=== PATIENT | female | born 1955 | race Caucasian/White ===

== ENCOUNTER → 2018-06-20 | Outpatient (REF) ==
[~2018-06-20] MED LIST: ATENOLOL25 MG OR; BACTRIM DS1 TAB PO; BENADRYL 50MG C50 MG PO; FLORASTOR250 M1 PO; HYDROCHLOROT25 MG PO; LOSARTAN POT50 MG PO; MEDDOSEPAK PO; METRONIDAZOL500 MG PO; PEPCID20 MG PO
== END | disposition home or self-care (01) | DRG 812 ==
LOC: LAB 08:42
PROVIDERS: ATTEND Family Medicine
DX: D64.9 Anemia, unspecified (principal); R73.01 Impaired fasting glucose; I10 Essential (primary) hypertension; E03.9 Hypothyroidism, unspecified; E78.5 Hyperlipidemia, unspecified

== ENCOUNTER 2020-04-07 16:07 | Inpatient (IN) | payer BC ==
[~2020-04-07] VITALS: Ht 167.6 cm; Wt 120.8 kg
--- NOTE | 2020-04-07 16:17 | NUR ---
PT TO ROOM 16 APPEARS SOB. REFUSED WC X 2. SATS 92% RA.
--- NOTE | 2020-04-07 16:25 | NUR ---
PATIENT UP TO BR WITH ASSISTANCE
[2020-04-07 16:54] LABS: URINE BILIRUBIN - DIPSTICK NEGATIVE (NEGATIVE); URINE BLOOD DIPSTICK NEGATIVE (NEGATIVE); URINE COLOR YELLOW; URINE GLUCOSE - DIPSTICK NEGATIVE (NEGATIVE); URINE KETONE TRACE mg/dL (NEGATIVE); URINE LEUK ESTERASE NEGATIVE (NEGATIVE); URINE NITRITE - DIPSTICK NEGATIVE (Negative); URINE PH 5.5 (4.5-8.0); URINE PROTEIN - DIPSTICK 30 mg/dL (NEG-TRACE); URINE UROBILINOGEN - DIPSTICK 0.2 E.U./dL (0.2)
[2020-04-07 16:57] LABS: URINE SQUAMOUS EPITHELIAL CELL MODERATE EPI/hpf (0-FEW)
[2020-04-07 17:00] VITALS: BP 146/63
[2020-04-07 17:10] LABS: IMMATURE GRANULOCYTES 0.5 % (0.0-5.0); MEAN CORPUSCULAR HGB 28.7 pG CALC (26.0-32.0); MEAN CORPUSCULAR HGB CONC 32.1 g/dL CAL (32.0-36.0); NEUT# 5.61 thou/uL (2.00-7.15); RED BLOOD COUNT 3.97 mill/uL (4.20-5.60); RED CELL DISTRI WIDTH 14.1 % (11.5-15.5)
[2020-04-07 17:12] LABS: HEMATOCRIT 35.5 % (37.0-47.0); HEMOGLOBIN 11.4 g/dl (12.0-16.0); MEAN CELL VOLUME 89.4 fL CALC (80.0-100.0)
[2020-04-07 17:19] LABS: ALKALINE PHOSPHATASE 129 u/l (38-126); ANION GAP 14 (6-22 (CALC)); BUN 12 mg/dL (8-23); BUN/CREATININE RATIO 22 (12-20 (CALC)); CARBON DIOXIDE 23 mmol/l (22-30); CHLORIDE 106 mmol/l (95-108); CREATININE 0.5 mg/dL (0.5-1.0); GFR > 60 ML/MIN (>=60 (CALC)); GFR FOR AFR.AMER. > 60 ML/MIN (>=60 (CALC)); POTASSIUM 3.3 mmol/l (3.5-5.1); SGOT/AST 30 u/l (9-36); SODIUM 140 mmol/l (137-146)
[2020-04-07 17:22] LABS: ALBUMIN 4.1 g/dL (3.2-5.0); BILIRUBIN, TOTAL 0.6 mg/dL (0.0-1.4); TOTAL PROTEIN 7.8 g/dL (6.3-8.2)
[2020-04-07 17:29] LABS: ACT PARTIAL THROMBO TIME 26.6 SECONDS (20.0-32.5); PROTHROMBIN TIME 9.7 SECONDS (9.0-12.5)
[2020-04-07 18:00] VITALS: BP 188/87
--- NOTE | 2020-04-07 18:10 | NUR ---
COVID SWAB COLLECTED, ISOLATION PRECAUTIONS INITIATED.
[2020-04-07] MEDS ORDERED: METOPROL TAR25 MG PO (18:19)
--- NOTE | 2020-04-07 18:39 | NUR ---
PHONE CALL FROM RAMSES GOTTLIEB, NEW ORDERS RECEIVED.
[2020-04-07 18:41] LABS: C-REACTIVE PROTEIN 15.9 mg/dL (0-0.9)
--- NOTE | 2020-04-07 18:44 | NUR ---
MD AT BEDSIDE TO DISCUSS RESULTS AND POC.
[2020-04-07 19:00] VITALS: BP 170/79
--- NOTE | 2020-04-07 19:09 | NUR ---
BEDSIDE REPORT GIVEN TO FLORES LAINEZ.
--- NOTE | 2020-04-07 19:38 | NUR ---
PT'S RESPS EVEN, UNLABBORERD. PT PINK, WARM AND DRY. PT UPDATED ON PLAN OF CARE. PT IN NAD. PT AWARE THAT SHE IS ADMITTED AND BEDS ARE NOT AVAILABLE.
[2020-04-07 20:00] VITALS: BP 163/70
--- NOTE | 2020-04-07 21:58 | NUR ---
PT CURRENTLY SETTING UP HER FROM HOME CPAP. PT DENIES COMPLAINTS. PILLOW GIVEN
--- NOTE | 2020-04-07 22:40 | NUR ---
PT SETTLED INTO BED. PT WEARING HOME CPAP WITH NO DISTRESS NOTED
--- NOTE | 2020-04-08 00:29 | NUR ---
PT SLEEPING WITH CPAP IN PLACE. RESPS EVEN, UNALBBORED
--- NOTE | 2020-04-08 01:40 | NUR ---
PT PLACED ON HOSPITAL BED FOR COMFORT. PT DENIES COMPLAINTS. RESPS EVEN, UNALBBORED WITH HOME CPAP.
--- NOTE | 2020-04-08 02:17 | NUR ---
PT SLEEPING. RESPS EVEN, UNALBBORED.
--- NOTE | 2020-04-08 03:46 | NUR ---
PT SLEEPING. RESPS EVEN,UNLABBORED
--- NOTE | 2020-04-08 04:48 | NUR ---
PT SLEEPING. RESPS EVEN, UNLABBORED
--- NOTE | 2020-04-08 07:00 | NUR ---
REPORT RECEIVED FROM MIGEL TANNER.
--- NOTE | 2020-04-08 07:00 | NUR ---
RECEIVED REPORT FROM MIGEL TANNER.
--- NOTE | 2020-04-08 08:30 | NUR ---
PT PROVIDED MEAL TRAY. STABLE ON MONITOR. PERSONAL ITEMS AND CALL LIGHT WITHIN REACH.
--- NOTE | 2020-04-08 09:59 | NUR ---
TO RADIOLOGY IN STABLE CONDITION VIA WHEELCHAIR
--- NOTE | 2020-04-08 10:13 | NUR ---
PT RETURNED FROM RADIOLOGY VIA W/C IN STABLE CONDITION. REATTACHED TO MONITOR.
[2020-04-08 10:30] VITALS: BP 169/77
[2020-04-08 12:00] LABS: BASO% 0 % (0-3); EOS% 0 % (0-8); HEMATOCRIT 32.8 % (37.0-47.0); HEMOGLOBIN 10.7 g/dl (12.0-16.0); IMMATURE GRANULOCYTES 0.6 % (0.0-5.0); LYMPH% 12 % (15-41); MEAN CELL VOLUME 88.4 fL CALC (80.0-100.0); MEAN CORPUSCULAR HGB 28.8 pG CALC (26.0-32.0); MEAN CORPUSCULAR HGB CONC 32.6 g/dL CAL (32.0-36.0); MONO% 4 % (2-13); NEUT# 5.23 thou/uL (2.00-7.15); NEUT% 84 % (42-76); PLATELET COUNT 285 thou/uL (130-400); RED BLOOD COUNT 3.71 mill/uL (4.20-5.60)
--- NOTE | 2020-04-08 12:10 | NUR ---
LUNCH PROVIDED TO PT. MEDICATED AT THIS TIME FOR HEADACHE AND BP. WILL CONTINUE TO MONITOR.
[2020-04-08 12:14] LABS: ALBUMIN 3.8 g/dL (3.2-5.0); ALKALINE PHOSPHATASE 119 u/l (38-126); BILIRUBIN, TOTAL 0.4 mg/dL (0.0-1.4); BUN 13 mg/dL (8-23); BUN/CREATININE RATIO 24 (12-20 (CALC)); CHLORIDE 104 mmol/l (95-108); CREATININE 0.5 mg/dL (0.5-1.0); GFR > 60 ML/MIN (>=60 (CALC)); GFR FOR AFR.AMER. > 60 ML/MIN (>=60 (CALC)); POTASSIUM 3.6 mmol/l (3.5-5.1); SGOT/AST 31 u/l (9-36); SODIUM 142 mmol/l (137-146); TOTAL PROTEIN 7.5 g/dL (6.3-8.2)
[2020-04-08 12:24] LABS: ANION GAP 12 (6-22 (CALC)); CARBON DIOXIDE 30 mmol/l (22-30)
[2020-04-08 12:26] LABS: C-REACTIVE PROTEIN 14.3 mg/dL (0-0.9)
--- NOTE | 2020-04-08 13:15 | NUR ---
DR JAMES AND Theresa LOP AT BEDSIDE AT THIS TIME TO DISCUSS PLAN OF CARE.
[2020-04-08 14:30] VITALS: BP 155/70
--- NOTE | 2020-04-08 14:30 | NUR ---
PT MEDICATED AT THIS TIME ORDERED. VITALS REMAIN STABLE. PT UP TO BATHROOM WITHOUT DIFFICULTY. PERSONAL ITEMS WITHIN REACH. NO DISTRESS NOTED UPON RETURN TO BED.
--- NOTE | 2020-04-08 16:30 | NUR ---
NO CHANGE FROM PREVIOUS ASSESSMENT. PT REMAINS STABLE.
--- NOTE | 2020-04-08 18:34 | NUR ---
PT REFUSED MEAL TRAY. REQUESTED FAMILY MEMBER TO BRING FOOD. PT WAS ALSO PROVIDED WITH ITEMS TO CLEAN AND WASH UP. NO OTHER CONCERNS AT THIS TIME.
--- NOTE | 2020-04-08 19:25 | NUR ---
PT APPEARS MUCH IMPROVED FROM LAST NIGHT. PER PT SHE FEELS MUCH BETTER. RESPS EVEN, UNLABBORED. SHEEBA PEARCE CALLED AND PT DOWNGRADED TO MED SURG. PT REQUESTING TO STAY IN ER STATING "SHE LIKES THE CARE HERE AND DOESN'T WANT TO DEAL WITH THE MED SURG NOISE"
--- NOTE | 2020-04-08 21:54 | NUR ---
PT UPDATED ON PLAN OF CARE. PT AMMENDABLE TO GOING TO THE FLOOR. PT'S RESPS EVEN, UNLABBORED. PT IN NAD
--- NOTE | 2020-04-08 21:54 | NUR ---
SPT'S OXYGEN CURRENTLY PIGGYBACKED AT 6L INTO HOME CPAP DECREASED FROM 10 L . PT TOLERATING THE CHANGE WELL AND MAINTAINING OXYGEN SATURATION
--- NOTE | 2020-04-08 22:35 | NUR ---
PT'S RESPS EVEN, UNLABBORED. PT IN NAD
[2020-04-08 23:00] VITALS: BP 153/61
--- NOTE | 2020-04-08 23:02 | NUR ---
PATIENT ARRIVED TO UNIT AT 2300 VIA W/C WITH ER NURSE, PATIENT WITH 02 VIA NASAL CANNULA, PATIENT ALERT AND ORIENTED, NO C/O PAIN, SOB, OR DISTRESS, PATIENT PRESENTS WITH NON-PRODUCTIVE COUGH, TELEMETRY ON, PATIENT WEARS CPAP WITH 02 AT 6LITERS. PATIENT ORIENTED TO STAFF, UNIT, ROOM, AND CALL LIGHT.
[2020-04-09 05:10] VITALS: BP 137/80
[2020-04-09 06:15] LABS: HEMATOCRIT 33.6 % (37.0-47.0); HEMOGLOBIN 10.6 g/dl (12.0-16.0); MEAN CELL VOLUME 89.8 fL CALC (80.0-100.0); MEAN CORPUSCULAR HGB 28.3 pG CALC (26.0-32.0); MEAN CORPUSCULAR HGB CONC 31.5 g/dL CAL (32.0-36.0); RED BLOOD COUNT 3.74 mill/uL (4.20-5.60); RED CELL DISTRI WIDTH 13.9 % (11.5-15.5)
[2020-04-09 06:31] LABS: BUN 18 mg/dL (8-23); BUN/CREATININE RATIO 40 (12-20 (CALC)); CARBON DIOXIDE 26 mmol/l (22-30); CHLORIDE 106 mmol/l (95-108); CREATININE 0.4 mg/dL (0.5-1.0); GFR > 60 ML/MIN (>=60 (CALC)); GFR FOR AFR.AMER. > 60 ML/MIN (>=60 (CALC)); MAGNESIUM 2.1 mg/dL (1.6-2.3); SODIUM 141 mmol/l (137-146)
[2020-04-09 06:33] LABS: ANION GAP 13 (6-22 (CALC)); POTASSIUM 3.9 mmol/l (3.5-5.1)
[2020-04-09 08:30] VITALS: BP 166/67
--- NOTE | 2020-04-09 08:30 | NUR ---
PT IN SEMO LI'S POSITION; A/O X4; PT C/O CASSIDY 10/30, MEDICATED ORDERED; TELE MONITOR IN PLACE; HOME CPAP IN PLACE; #20 RAC SL FLUSHES WELL; ORIENTED PT TO ROOM AND CALL SYSTEM; CALL HIGHTOWER WITHIN REACH; WILL CONTINUE TO MONITOR.
[2020-04-09 10:25] VITALS: BP 137/70
--- NOTE | 2020-04-09 11:27 | NUR ---
PT ON THE PHONE; NO COMPLAINTS OR CONCERNS VOICED AT THIS TIME; WILL CONTINUE TO MONITOR.
--- NOTE | 2020-04-09 13:24 | NUR ---
PT TO SHOWER; ASSISTED BY MANAGER DIVISION; WILL CONTINUE TO MONITOR.
[2020-04-09 15:25] VITALS: BP 158/86
--- NOTE | 2020-04-09 16:30 | NUR ---
PT WATCHING MOVIE ON TABLET; NO COMPLAINTS OR CONCERNS VOICED AT THIS TIME; CALL HIGHTOWER WITHIN REACH; WILL CONTINUE TO MONITOR.
[2020-04-09 19:45] VITALS: BP 166/83
--- NOTE | 2020-04-09 20:40 | NUR ---
PT MEDICATED ORDERS PROVIDE AND ASSESSMENT COMPLETED AT THIS TIME. LUNG SOUNDS ARE CLEAR, ABD NON-TENDER AND SOFT W/ACTIVE BOWEL SOUNDS. PT LOCX4, DENIES DIFFICUTLY URINATING. DENIES N/V/PAIN. REPORTS NON-PROD COUGH. WHEN ASKED WHEN HER LAST STOOL OUTPUT WAS, SHE WAS UNABLE TO TELL ME, SHE GUESS "I DON'T KNOW, MAYBE 3 DAYS AGO." NO S/O DISTRESS NOTED AT THIS TIME, WILL CONTINUE TO MONITOR FOR NEEDS AND DISTRESS. CALL LIGHT AT SIDE. ANTIBIOTIC THERAPY IS RUNNING TO #20 IN RAC/SITE APPEARS HEALTHY AT THIS TIME. CALL LIGHT AT SIDE AND PT ENCOURAGED TO CALL NEEDS ARISE.
--- NOTE | 2020-04-09 21:05 | NUR ---
IV ANTIBIOTIC THERAPY COMPLETED AT THIS TIME AND IV SITE FLUSHED PATENT. SITE APPEARS HEALTHY. PT DENIES ANY NEEDS. CALL LIGHT AT SIDE.
[2020-04-10] VITALS (7 sets, daily range): BP systolic 129–172; BP diastolic 76–87
--- NOTE | 2020-04-10 01:36 | NUR ---
PT APPEARS TO BE SLEEPING WITH LIGHTS AND TV OFF. CALL LIGHT WAS HANGING TO THE FLOOR, POSITIONED CALL LIGHT FOR PATIENT SO SHE CAN REACH IT, SECURING IT TO SIDE RAIL. NO S/O DISTRESS NOTED.
--- NOTE | 2020-04-10 05:17 | NUR ---
PT MEDICATED ORDERS PROVIDE. PT WAS SLEEPING, QUICKLY RETURNED TO SLEEP AFTER MEDICATING. NO S/O DISTRESS NOTED AT THIS TIME. CALL LIGHT AT SIDE.
[2020-04-10 05:49] LABS: HEMATOCRIT 33.3 % (37.0-47.0); HEMOGLOBIN 10.4 g/dl (12.0-16.0); IMMATURE GRANULOCYTES 1.4 % (0.0-5.0); MEAN CELL VOLUME 89.8 fL CALC (80.0-100.0); MEAN CORPUSCULAR HGB CONC 31.2 g/dL CAL (32.0-36.0); NEUT# 3.78 thou/uL (2.00-7.15); RED BLOOD COUNT 3.71 mill/uL (4.20-5.60); RED CELL DISTRI WIDTH 13.7 % (11.5-15.5)
[2020-04-10 06:01] LABS: ALBUMIN 3.3 g/dL (3.2-5.0); ALKALINE PHOSPHATASE 103 u/l (38-126); ANION GAP 11 (6-22 (CALC)); BILIRUBIN, TOTAL 0.3 mg/dL (0.0-1.4); BUN 18 mg/dL (8-23); BUN/CREATININE RATIO 49 (12-20 (CALC)); C-REACTIVE PROTEIN 2.4 mg/dL (0-0.9); CARBON DIOXIDE 27 mmol/l (22-30); CHLORIDE 106 mmol/l (95-108); CREATININE 0.4 mg/dL (0.5-1.0); GFR > 60 ML/MIN (>=60 (CALC)); GFR FOR AFR.AMER. > 60 ML/MIN (>=60 (CALC)); SGOT/AST 39 u/l (9-36); SODIUM 140 mmol/l (137-146); TOTAL PROTEIN 6.3 g/dL (6.3-8.2)
--- NOTE | 2020-04-10 07:30 | NUR ---
PATIENT SITTING UP IN BED AT THIS TIME SIDERAILS UP X 2 CALL LIGHT WITHIN REACH. PATIENT HAS 02 VIA CPAP NASAL AT 6 LITER AND STATING 93%. PATIENT DENIES ANY NEEDS AT THIS TIME. PATIENT HAS A NON PRODUCTIVE COUGH.
--- NOTE | 2020-04-10 12:27 | NUR ---
PATIENT RESTING IN BED DENIES ANY NEEDS CURRENTLY HAS 02 6LITERS VIA C-PAP. DENIES ANY PAIN. SIDERAILS UP CALL LIGHT WITHIN REACH.
--- NOTE | 2020-04-10 16:20 | NUR ---
PATIENT IN BED AT THIS TIME. PATIENT ON 6 LITERS OF O2 VIA C-PAP MACHINE. PATIENT SIDERAILS UP X 2 CALL LIGHT WITHIN REACH. PATIENT DENIES ANY NEEDS AT THIS TIME.
--- NOTE | 2020-04-10 20:37 | NUR ---
V/S ASSESSED AND ASSESSMENT COMPLETED. PT BP ELEVATED AT 172/87, SHE REPORTS HAVING BEEN COUGHING. WILL MEDICATE ORDERS PROVIDE. LUNG SOUNDS ARE DIM/CL, CPAP IN PLACE TO NARES. NO S/O DISTRESS NOTED. PT DENIES ANY NEEDS AT THIS TIME, BUT WAS ENCOURAGED TO CALL. CALL LIGHT AT SIDE.
--- NOTE | 2020-04-10 21:22 | NUR ---
PT MEDICATED ORDERS PROVIDE. DENIES ANY OTHER NEEDS. IV FLUSHED PATENT. SITE APPEARS HEALTHY. CALL LIGHT AT SIDE AND PT ENCOURAGED TO CALL ANY NEEDS ARISE.
[2020-04-11] VITALS (8 sets, daily range): BP systolic 137–174; BP diastolic 63–83
--- NOTE | 2020-04-11 01:30 | NUR ---
PT IS LAYING ON HER SIDE IN LOW FOWLERS READING ON CELLPHONE. LIGHTS ARE DOWN LOW, NO S/O DISTRESS NOTED.
--- NOTE | 2020-04-11 05:22 | NUR ---
PT AWAKE IN READING ON IPAD IN BED WITH LIGHTS OUT. MEDICATED PT ORDERS PROVIDE. DENIES ANY OTHER NEEDS.
[2020-04-11 05:24] LABS: HEMATOCRIT 33.5 % (37.0-47.0); HEMOGLOBIN 10.8 g/dl (12.0-16.0); MEAN CELL VOLUME 89.1 fL CALC (80.0-100.0); MEAN CORPUSCULAR HGB 28.7 pG CALC (26.0-32.0); MEAN CORPUSCULAR HGB CONC 32.2 g/dL CAL (32.0-36.0); NEUT# 4.55 thou/uL (2.00-7.15); RED BLOOD COUNT 3.76 mill/uL (4.20-5.60); RED CELL DISTRI WIDTH 13.4 % (11.5-15.5)
[2020-04-11 05:38] LABS: ALBUMIN 3.3 g/dL (3.2-5.0); ALKALINE PHOSPHATASE 102 u/l (38-126); ANION GAP 10 (6-22 (CALC)); BILIRUBIN, TOTAL 0.5 mg/dL (0.0-1.4); BUN 16 mg/dL (8-23); BUN/CREATININE RATIO 48 (12-20 (CALC)); CARBON DIOXIDE 29 mmol/l (22-30); CHLORIDE 104 mmol/l (95-108); CREATININE 0.3 mg/dL (0.5-1.0); GFR > 60 ML/MIN (>=60 (CALC)); GFR FOR AFR.AMER. > 60 ML/MIN (>=60 (CALC)); POTASSIUM 4.2 mmol/l (3.5-5.1); SGOT/AST 45 u/l (9-36); SODIUM 138 mmol/l (137-146); TOTAL PROTEIN 6.3 g/dL (6.3-8.2)
--- NOTE | 2020-04-11 05:59 | NUR ---
PT MEDICATED FOR ELEVATED BP, PT WAS BACK TO SLEEP AND RESTFULL WHEN TAKEN.
--- NOTE | 2020-04-11 07:45 | NUR ---
PATIENT IN BED AT THIS TIME 02 VIA CPAP ON AT 6 LITERS AT THIS TIME. PATIENT DENIES ANY NEEDS. SIDERAILS UP CALL LIGHT WITHIN REACH. PATIENT HAS NON -PRODUCTIVE COUGH AT THIS TIME. SALOME EDUCATED ON NORVAC MEDICATION A NEW MED. AND SIDE EFFECTS. JEANETTE VERBALIZES UNDERSTANDING.
--- NOTE | 2020-04-11 10:00 | NUR ---
O2 TITRATED DOWN TO 5 LITERS AT THIS TIME. PATIENT VERBALIZES UNDERSTANDING OF TITRATIONS.
--- NOTE | 2020-04-11 10:30 | NUR ---
PATIENT O2 DOWN TO 5 LITERS AT THIS TIME SPO2 IS AT 93% AT THIS TIME.
--- NOTE | 2020-04-11 12:00 | NUR ---
PATIENT RESTING IN BED AT THIS TIME. 02 TITRATED DOWN TO 5 LITERS. PATIENT IMMANUEL ANY NEEDS AT THIS TIME. CALL LIGHT WITHIN REACH SIDERAILS UP X 2.
--- NOTE | 2020-04-11 14:00 | NUR ---
TITRATED PATIENTS O2 DOWN TO 4.5 LITERS AT THIS TIME. WILL CONTINUE TO MONITOR. EDUCATED PATIENT ON CALLING OUT FOR NURSE IF SHE BECOMES SHORT OF BREATH AT ANY TIME.
--- NOTE | 2020-04-11 16:23 | NUR ---
PATIENT UP IN SHOWER AT THIS TIME DENIES ANY NEEDS 02 REMAINS ON AT 4.5 LITERS VIA C-PAP. PATIENT DENIES ANY PAIN AT THIS TIME. SIDERAILS ARE UP CALL LIGHT IS WITHIN REACH.
--- NOTE | 2020-04-11 16:33 | NUR ---
SPO2 AT THIS TIME IS 93% ON 4.5L OF O2 AT THIS TIME. PATIENT HAS BEEN ON 4.5 L OF O2 SINCE 1400. PATIENT DENIES ANY SHORTNESS OF BREATH AT THIS TIME.
--- NOTE | 2020-04-11 21:03 | NUR ---
PT MEDICATED ORDERS PROVIDE AND ASSESSMENT COMPLETED AT THIS TIME. SNACK PROVIDED PER REQUEST. LUNG SOUNDS ARE DIM/CL THROUGHOUT. PT REPORTS COUGHING, MEDICATED ORDERS AVAILABLE. OXYGEN SAT LEVELS ASSESSED BETWEEN 90-92% AT THIS TIME ON 4.5L THROUGH HER CPAP, WILL CONTINUE TO MONITOR CLOSELY. MEDICATION SCHEDULE DISCUSSED WITH HER AT THIS TIME. PT REPORTS IT GETS DEPRESSING BEING IN THAT ROOM ALL ALONE, I TRIED TO TALK WITH HER A LITTLE FOR COMFORT, SHE WAS LEFT EATING HER SNACKS.
--- NOTE | 2020-04-11 23:03 | NUR ---
PT IS IN LOW FOWLERS POSITION IN BED WORKING ON SOWING PROJECT. LIGHTS AND TV ARE ON. SHE HAS CPAP IN PLACE W/OXYGEN AT 4.5L AT THIS TIME.
[2020-04-12 04:00] VITALS: BP 157/76
--- NOTE | 2020-04-12 04:00 | NUR ---
PT PROVIDED JUICE, STATES SHE WAS FEELING A LITTLE SOB SO SHE REPLACED HER OXYGEN NC. IT IS RUNNING @1L. OXYGEN SAT LEVEL @96% PT HAD SELF AMBULATED TO THE RESTROOM EARLIER, BUT DID NOT CALL ME TO HAVE HER OXYGEN LEVELS CHECKED.
--- NOTE | 2020-04-12 04:12 | NUR ---
SHOER IS IN WITH PT OBTAINING V/S AT THIS TIME. NO S/O DISTRESS NOTED AT THIS TIME. PT DENIES ANY NEEDS.
--- NOTE | 2020-04-12 05:36 | NUR ---
PT MEDICATED ORDERS PROVIDE AND ASSISTED HER TO RESTROOM. PT IS TALKING ABOUT HOPING SHE CAN GO HOME TODAY.
[2020-04-12 06:14] LABS: HEMATOCRIT 34.4 % (37.0-47.0); HEMOGLOBIN 11.1 g/dl (12.0-16.0); IMMATURE GRANULOCYTES 3.3 % (0.0-5.0); MEAN CELL VOLUME 88.9 fL CALC (80.0-100.0); MEAN CORPUSCULAR HGB 28.7 pG CALC (26.0-32.0); MEAN CORPUSCULAR HGB CONC 32.3 g/dL CAL (32.0-36.0); NEUT# 5.19 thou/uL (2.00-7.15); RED BLOOD COUNT 3.87 mill/uL (4.20-5.60); RED CELL DISTRI WIDTH 13.7 % (11.5-15.5)
[2020-04-12 06:37] LABS: ALBUMIN 3.3 g/dL (3.2-5.0); ALKALINE PHOSPHATASE 105 u/l (38-126); ANION GAP 11 (6-22 (CALC)); BILIRUBIN, TOTAL 0.4 mg/dL (0.0-1.4); BUN 21 mg/dL (8-23); BUN/CREATININE RATIO 44 (12-20 (CALC)); C-REACTIVE PROTEIN 0.7 mg/dL (0-0.9); CARBON DIOXIDE 28 mmol/l (22-30); CHLORIDE 103 mmol/l (95-108); CREATININE 0.5 mg/dL (0.5-1.0); GFR > 60 ML/MIN (>=60 (CALC)); GFR FOR AFR.AMER. > 60 ML/MIN (>=60 (CALC)); SGOT/AST 35 u/l (9-36); SODIUM 137 mmol/l (137-146); TOTAL PROTEIN 6.2 g/dL (6.3-8.2)
[2020-04-12 07:56] VITALS: BP 140/67
--- NOTE | 2020-04-12 08:10 | NUR ---
PATIENT RESTING QUIETLY IN BED, CPAP ON, NO C/O PAIN, SOB, OR DISTRESS. TELE ON, IV SITE INTACT, FULL ASSESSMENT COMPLETED. CALL LIGHT WITHIN REACH, BED IN LOWEST POSITION, WILL CONTINUE TO MONITOR.
[2020-04-12 10:55] VITALS: BP 133/62
[2020-04-12 15:05] VITALS: BP 125/53
--- NOTE | 2020-04-12 19:13 | NUR ---
REPORT EZRA MURILLO RN. ASSUMED PT CARE.
[2020-04-12 19:30] VITALS: BP 125/43
--- NOTE | 2020-04-12 20:59 | NUR ---
PT NOTED SITTING UP IN BED SEWING. ALERT AND ORIENTED. NO APPARENT DISTRESS NOTED. HOME CPAP MACHINE WITH 4.5L/M O2. IV SITE APPEARS HEALTHY, FLUSHED WELL. DISCUSSED POC. PT VERBALIZED UNDERSTANDING. DENIES ANY PAIN OR SOB AT THIS TIME. TRACE EDEMA NOTED TO BLE. COMPLIANCE TESTING ANALYST IN PLACE. ICE AND ORANGE JUICE PROVIDED UPON REQUEST. NO OTHER CURRENT WANTS OR NEEDS. CALL LIGHT WITHIN REACH. WILL CONTINUE TO MONITOR.
[2020-04-13] VITALS: BP 130/66
--- NOTE | 2020-04-13 00:06 | NUR ---
PT MEDICATED WITH PRN APAP FOR HEADACHE. NO APPARENT DISTRESS NOTED. PT STILL WEARING HOME CPAP MACHINE WITH 4.5L/M O2. PT DENIES ANY OTHER CURRENT WANTS OR NEEDS. CALL LIGHT WITHIN REACH. WILL CONTINUE TO MONITOR.
--- NOTE | 2020-04-13 03:48 | NUR ---
PT RESTING IN BED. NO APPARENT DISTRESS NOTED. HOME CPAP WITH 4.5L/M IN PLACE. RESPIRATIONS EVEN AND UNLABORED. PARACHUTE PANEL JOINER IN PLACE. CALL LIGHT WITHIN REACH. WILL CONTINUE TO MONITOR.
[2020-04-13 04:45] VITALS: BP 140/63
[2020-04-13 07:30] VITALS: BP 154/67
--- NOTE | 2020-04-13 07:30 | NUR ---
PATIENT RESTING IN BED AT THIS TIME DENIES ANY PAIN. 02 VIA C-PAP ON AT 4.5 LITERS AT THIS TIME. PATIENT DOES EXHIBIT DRY NON PRODUCTIVE COUGH. SIDERAILS UP CALL LIGHT WITHIN REACH. PATIENT STATES "I FEEL BETTER TODAY".
[2020-04-13 11:28] VITALS: BP 144/63
[2020-04-13] MEDS ORDERED: LEVAQUIN750 M1 PO (12:09)
[2020-04-13] MEDS ORDERED: DEXAMETHASON6 MG PO (12:09)
[2020-04-13] MEDS ORDERED: ASPIRIN 81 LOW81 MG PO (12:12)
--- NOTE | 2020-04-13 12:15 | NUR ---
PATIENT SITTING UP IN BED AT THIS TIME EATING LUNCH. PATIENT SPO2 OFF OF OXYGEN IS 93%. PATIENT ENCOURAGE TO GET UP AND WALK AROUND AND PATIENT AT THIS TIME IS REFUSING. CALL LIGHT NEAR SIDERAILS UP X 2.
[2020-04-13] MEDS ORDERED: VENTOLIN H108 MCG/AC IN (14:01)
[2020-04-13] MEDS ORDERED: HYDROCHLOROT25 MG PO (14:02)
--- NOTE | 2020-04-13 14:44 | NUR ---
PATIENT D/C AT THIS TIME. PATIENT D/C INSTRUCTIONS GONE OVER AND PATIENT VERBALIZES UNDERSTANDING OF D/C. PATIENT IV REMOVED AT THIS TIME AND NO SIGNS OF IV SITE INFECTION NOTED. PATIENT EDUCATED ON IV SITE INFECTION SIGNS/SYMPTOMS. 2X2 CLEAN GAUZE APPLIED AND KOBAND FOR SUPPORT. PATIENT ADVISED TO REMOVE IN 2 HOURS.
--- NOTE | 2020-04-13 16:10 | NUR ---
Discharge instructions given. Patient verbalizes understanding of same. Discharged in stable condition via Wheelchair to Home with *Other. All belongings sent with pt.
== END 2020-04-13 16:10 | disposition home or self-care (01) | DRG 177 ==
LOC: ED 16:07 → ED-I 18:20 → ED 18:31 → ED-I 18:32 → MS2 04-08 23:00
PROVIDERS: Nurse Practitioner; Student in an Organized Health Care Education/Training Program; ADMIT Internal Medicine; ATTEND Internal Medicine
PROC: 5A09557 Assistance with Respiratory Ventilation, Greater than 96 Consecutive Hours, Continuous Positive Airway Pressure (ICD-10-PCS; principal; 2020-04-08)
DX: U07.1 COVID-19 (principal); J12.89 Other viral pneumonia; Z68.41 Body mass index [BMI] 40.0-44.9, adult; R09.02 Hypoxemia; I10 Essential (primary) hypertension; E66.01 Morbid (severe) obesity due to excess calories; G47.33 Obstructive sleep apnea (adult) (pediatric); K58.9 Irritable bowel syndrome, unspecified; Z87.891 Personal history of nicotine dependence
CPT/HCPCS: J1650; Q9967